=== PATIENT | female | born 1985 | race Caucasian/White ===

== ENCOUNTER 2016-12-03 17:52 | Emergency (ER) | payer MEDICAID ==
[~2016-12-03] VITALS: Ht 172.7 cm; Wt 97.0 kg
[~2016-12-03 17:52] MED LIST: ALPR1TAB2 PO; TRM50T PO
--- OUTSIDE RECORDS SUMMARY | 2016-12-03 17:56 | XMS REPORT | Continuity of Care Document ---
Author Author [facility] Address Unknown Phone Unavailable Allergies Active Description Code Type Severity Reaction Onset Reported/Identified Relationship to Patient Clinical Status Yes PCN PCN Unknown N/A 05/13/2012 Medications Problems Date Dx Coded Attending Type Code Diagnosis Diagnosed By 05/14/2012 Ot 305.1 05/14/2012 Ot 784.0 08/25/2013 CRISTIAN BUSH, JAYME Mccallum Ot 781.99 08/25/2013 CRISTIAN BUSH, JAYME Mccallum Ot 784.0 04/23/2015 NATALYA RAYA DO Ot 617.9 04/23/2015 NATALYA RAYA DO Ot 625.9 Procedures Results Encounters ACCT No. Visit Date/Time Discharge Status Pt. Type Provider Facility Loc./Unit Complaint [id number] 04/23/2015 16:18:00 2014 19:01:00 DIS Emergency NATALYA RAYA DO [facility] ED [id number] 08/25/2013 17:19:00 2013 18:49:00 DIS Emergency JAYME FOSTER MD [facility] ED [id number] 05/13/2012 21:15:00 Document Registration
--- OUTSIDE RECORDS SUMMARY | 2016-12-03 17:57 | XMS REPORT | Continuity of Care Document ---
Author Author [facility] Address Unknown Phone Unavailable Allergies Active Description [...] Status Pt. Type Provider Facility Loc./Unit Complaint [id number] 04/23/2015 16:18:00 2014 19:01:00 DIS Emergency NATALYA RAYA DO [facility] ED [id number] 08/25/2013 17:19:00 2013 18:49:00 DIS Emergency JAYME FOSTER MD [facility] ED [id number] 05/13/2012 21:15:00 Document Registration
[2016-12-03] MEDS ORDERED: HYDROmorphone 2 MG/ML (DILAUDID) 1 ML SYRINGE IM ONE (18:15)
[2016-12-03 18:28] VITALS: BP 151/107
== END 2016-12-03 18:25 | disposition home or self-care (01) ==
LOC: ED 17:54
DX: K08.89 Other specified disorders of teeth and supporting structures (principal); R68.84 Jaw pain
CPT/HCPCS: 96372; 99282; J1170